=== PATIENT | female | born 2000 | race Hispanic/Latino ===

== ENCOUNTER 2019-11-02 19:06 | Inpatient (IN) ==
--- NOTE | 2019-11-02 19:37 | PROVIDER DOCUMENTATION ---
This chart was entered by Naomy Estrella Scribe, acting as scribe for Delbert Francois MD. HPI-Female /OB/Breast - General Chief Complaint: OB-Active Labor Stated Complaint: ABD PAIN/BLEEDING OB RELATED Time Seen by Provider: 11/02/19 19:10 Source: reports: healthcare interpreter Allergies/Adverse Reactions: Patient Allergies Allergy/AdvReac Type Severity Reaction Status Date / Time No Known Allergies Allergy Verified 11/24/18 02:13 Home Medications: Home Medication List Medication Instructions Recorded Confirmed Last Taken Type Pnv Cmb#95/Ferrous Fumarate/FA 1 tab PO DAILY 11/24/18 11/24/18 Unknown History [ Tablet] Ibuprofen [Motrin] 800 mg PO Q8H PRN PRN #30 tab 11/26/18 Unknown Rx - History of Present Illness-Female /OB Nature of Presenting Problem: Pt is a 19 yowf , 38 weeks , EDC 11/16/19, who presents to the ED in active labor. Pt is and does not speak occitan. History obtained thru language line. SROM at 7pm. Pt denies any vaginal bleeding. No care. Does patient report she is ?: Yes Location of complaint: reports: unknown Radiation: reports: none Quality of Pain: reports: pressure Severity in ED: reports: mild Onset/Duration: reports: 1-3 hours ago Timing: reports: still present Context/Activities at Onset: reports: none Vaginal Symptoms: reports: no symptoms Vaginal Bleeding Amount: None Urinary Symptoms: reports: no symptoms Related Symptoms: denies: vaginal bleeding Leakage of Fluid: none Sexual intercourse history: reports: Not Active Contraception: reports: none Modifying Factors: improves with: nothing Associated Symptoms: reports: denies symptoms Similar Symptoms Previously?: Yes Recently seen or treated by another doctor?: No - LMP/ History Menstrual Status: currently : 3 Para: 2 Prior Delivery: N/A Care: none Weeks/Months: 38 Age estimated by:: by dates CURRENT Problems: none PREVIOUS Problems: reports: none Contractions/Pelvic Pain: reports: weak Review of Systems - Adult - REVIEW OF SYSTEMS - ADULT Constitutional: reports: see HPI Eyes: reports: no symptoms reported Ears, Nose, Mouth & Throat: reports: no symptoms reported Cardiovascular: reports: no symptoms reported Respiratory: reports: no symptoms reported Gastrointestinal: reports: no symptoms reported Genitourinary: reports: see HPI, other (active labor) Musculoskeletal: reports: no symptoms reported Integumentary: reports: no symptoms reported Neurological: reports: no symptoms reported Psychiatric: reports: no symptoms reported Endocrine: reports: no symptoms reported Hematologic/Lymphatic: reports: no symptoms reported Allergic/Immunologic: reports: no symptoms reported All Other Systems: Reviewed and Negative Past History - Adult - PAST MEDICAL HISTORY-ADULT Review of Records: reports: Nursing Assessment Review, Medications Reviewed, Social history reviewed & non-contributory. Major Childhood Illnesses: reports: denies history Cardiovascular: reports: denies history Respiratory: reports: denies history Gastrointestinal: reports: denies history Obstetrical/Gynecological: reports: denies history Genitourinary: reports: denies history Musculoskeletal: reports: denies history Neurological: reports: denies history Endocrine/Immune: reports: denies history Other Conditions: reports: denies history - FAMILY HISTORY Family History: reviewed, not pertinent - SOCIAL HISTORY Smoking: non-smoker Substance Use: denies Physical Exam-General - PHYSICAL EXAM-ADULT Initial Vital Signs Reviewed: Yes - CONSTITUTIONAL General Appearance: alert, no apparent distress - EYES Eyes: PERRL/EOMI, pink conjunctivae - HEAD, EARS, NOSE, MOUTH & THROAT HENMT: normocephalic/atraumatic, moist mucous membranes, normal ENT inspection - NECK Neck: non-tender, full range of motion, supple, normal inspection - RESPIRATORY Respiratory: chest non-tender, lungs clear, normal breath sounds - CARDIOVASCULAR Cardiovascular: normal peripheral pulses, regular rate, rhythm - GASTROINTESTINAL (ABDOMEN) Abdominal Exam: normal bowel sounds, non tender, soft - GENITOURINARY Female Genitalia/Pelvic Exam: other (sterile pelvic exam: cervix is closed). negative: active bleeding - LYMPHATIC Lymphatic: no adenopathy - MUSCULOSKELETAL Back Exam: normal inspection, no CVA tenderness, no vertebral tenderness Extremity: normal range of motion, non-tender, normal inspection - SKIN Integumentary: normal color, normal turgor, warm/dry - NEUROLOGIC Neurologic: grossly normal - PSYCHIATRIC Psych/Mental Status: normal mood/affect, normal thought content, normal thought process, oriented x 3 Progress - PLAN OF CARE/RESULTS Progress/Plan/Lab Results: Vital Signs - 8 hr 11/02/19 19:08 Temperature 97.8 F Pulse Rate 83 Respiratory Rate 20 Blood Pressure 121/79 O2 Sat by Pulse Oximetry 97 Orders Category Date Time Status Heart Tones NOW Care 11/02/19 19:33 Ordered Saline Loc NOW Care 11/02/19 19:33 Ordered ABORH [BBK] Stat Lab 11/02/19 19:33 Ordered BMP [BASIC METABOLIC PANEL] [CHEM] Stat Lab 11/02/19 19:33 Ordered CBC WITH ELECTRONIC DIFF [HEME] Stat Lab 11/02/19 19:33 Ordered - CONSULTS/PCP/HOSPITALIST Notification #1 *Consult/PCP/Hospitalist*: Dr. Cortez OB Time Discussed: 19:25 Reason/Comments: accepts patient, transfer to L&D at [facility] Departure - Departure Date of Disposition Decision: 11/02/19 Time of Disposition Decision: 19:37 DIAGNOSIS: Active labor, 38 weeks gestation of Disposition: OTHER 70 Certified Medical Emergency: Emergent Condition: Stable Additional Instructions: transport by EMS to L&D at [facility] Referrals and Follow-Ups: None,PCP [Primary Care Provider] - - Critical Care Note This patient required my direct & personal management of CC.: No Attestation - Physician/ VARUN Attestation Patient care was provided by Advanced Practice Provider:: No The physician spent face to face time with patient:: Yes Advanced Practice Provider documentation review:: Supervising physician onsite and consulted in the evaluation and care of this patient. The physician did have a face to face encounter with the patient. This chart was documented by the indicated scribe, (Naomy Estrella Scribe) and accurately reflects the services I performed and decisions made by me, Delbert Francois MD, as attested by the provider's signature.
[2019-11-02 19:43] LABS: BASO# 0.03 X1000 (0.0-0.2); BASO% 0.3 % (0.0-0.8); EOS# 0.09 X1000 (0.0-0.7); EOS% 0.8 % (0.0-10.0); HEMATOCRIT 33.4 % (37.0-47.0); HEMOGLOBIN 10.6 g/dL (12.0-16.0); IMM GRAN# 0.09 X1000 (0.0-0.04); IMM GRAN% 0.8 % (0.0-0.5); LYMPH# 2.21 X1000 (1.2-3.4); LYMPH% 20.4 % (20.5-51.1); MCHC 31.7 g/dL (33-37); MCV 81.9 FL (81-99); MONO# 0.83 X1000 (0.11-0.59); MONO% 7.7 % (1.7-9.3); MPV 11.6 FL (7.4-10.4); NEUT# 7.57 X1000 (1.4-6.5); PLT 246 X1000 (130-400); RBC 4.08 XMIL (4.2-5.4); RDW 14.7 % (11.5-14.5); WBC 10.82 X1000 (4.8-10.8)
[2019-11-02 20:14] LABS: AGAP 14; BUN 11 mg/dL (8-22); CALCIUM 8.5 mg/dL (8.8-10.2); CHLORIDE 108 mmol/L (98-107); COSMO 278; CREATININE 0.6 mg/dL (0.5-0.9); ESTIMATED GFR > 60; GLUCOSE 115 mg/dL (70-104); POTASSIUM 3.6 mmol/L (3.5-5.1); SODIUM 139 mmol/L (136-145); TCO2 18 mmol/L (25-35)
[2019-11-02 20:23] LABS: URINE SOURCE VOIDED
[2019-11-02 20:37] LABS: BILIRUBIN URINE NEGATIVE (NEGATIVE); BLOOD URINE MODERATE (NEGATIVE); COLOR STRAW; GLUCOSE URINE NEGATIVE (NEGATIVE); KETONE URINE NEGATIVE (NEGATIVE); LEUKOCYTES URINE LARGE (NEGATIVE); NITRITE URINE NEGATIVE (NEGATIVE); PROTEIN URINE NEGATIVE (NEGATIVE); SP GRAVITY URINE 1.007; TURBIDITY URINE HAZY (CLEAR); UROBILINOGEN URINE NORMAL (NORMAL)
[2019-11-02 20:56] LABS: UR AMPHETAMINES QUAL NONE DETECTED (NONE DETECT); UR BARBITUATES QUAL NONE DETECTED (NONE DETECT); UR BENZODIAZEPIN QUAL NONE DETECTED (NONE DETECT); UR CANNABINOIDS QUAL NONE DETECTED (NONE DETECT); UR COCAINE QUAL NONE DETECTED (NONE DETECT); UR METHADONE QUAL NONE DETECTED (NONE DETECT); UR OPIATES QUAL NONE DETECTED (NONE DETECT); UR OXYCODONE QUAL NONE DETECTED (NONE DETECT); UR PCP QUAL NONE DETECTED (NONE DETECT)
[2019-11-02 20:59] LABS: BASO# 0.03 X1000 (0.0-0.2); BASO% 0.3 % (0.0-0.8); EOS# 0.08 X1000 (0.0-0.7); EOS% 0.8 % (0.0-10.0); HEMATOCRIT 32.6 % (37.0-47.0); HEMOGLOBIN 10.3 g/dL (12.0-16.0); IMM GRAN# 0.08 X1000 (0.0-0.04); IMM GRAN% 0.8 % (0.0-0.5); LYMPH% 22.3 % (20.5-51.1); MCH 26.2 PG (27-31); MCHC 31.6 g/dL (33-37); MONO# 0.59 X1000 (0.11-0.59); MONO% 6.3 % (1.7-9.3); MPV 11.2 FL (7.4-10.4); NEUT# 6.55 X1000 (1.4-6.5); NEUT% 69.5 % (42.2-75.2); PLT 242 X1000 (130-400); RBC 3.93 XMIL (4.2-5.4); RDW 14.7 % (11.5-14.5); WBC 9.43 X1000 (4.8-10.8)
[2019-11-02 21:32] LABS: RAPID HIV PRESUMPTIVE NEGATIVE; RPR NON-REACTIVE (NONREACTIVE); RUBELLA SCREEN NON IMMUNE (IMMUNE)
[2019-11-02] MEDS ORDERED: PEPCID IV PRN (22:34)
[2019-11-02] MEDS ORDERED: PEPCID PO PRN (22:34)
[2019-11-02] MEDS ORDERED: KEFZOL 1 GM/D5W 1 GM/50 ML IVPB IV PRN (22:34)
[2019-11-02] MEDS ORDERED: REGLAN PO ONE (22:34)
[2019-11-02] MEDS ORDERED: STADOL IV PRN (22:34)
[2019-11-02] MEDS ORDERED: ZOFRAN IV PRN (22:34)
[2019-11-02] MEDS ORDERED: AMPICILLIN 2 GM in NS 100 ML IV ONE (22:34)
[2019-11-02] MEDS ORDERED: PEPCID PO ONE (22:34)
[2019-11-02] MEDS ORDERED: TYLENOL PO PRN (22:34)
[2019-11-02] MEDS ORDERED: CELESTONE SOLUSPAN IM ONE (22:35)
[2019-11-02] MEDS ORDERED: SODIUM CHLORIDE 0.9% INJ SCH (22:45)
[2019-11-02] MEDS ORDERED: LR 1,000 ML IV SCH (22:45)
[2019-11-02] MEDS: PITOCIN 30 UNITS/NS 30 UNIT/500 ML IV.SOLN IV SCH (22:45)
[2019-11-02] MEDS ORDERED: PITOCIN 30 UNITS/NS 30 UNIT/500 ML IV.SOLN IV SCH (22:45)
[2019-11-02] MEDS ORDERED: MOTRIN PO ONE (22:58)
[2019-11-02] MEDS ORDERED: PERCOCET-5 PO ONE (22:58)
[2019-11-02] MEDS ORDERED: HYDROXYZINE IM PRN (23:22)
[2019-11-02] MEDS ORDERED: BENADRYL IV PRN (23:22)
[2019-11-02] MEDS ORDERED: PITOCIN IM PRN (23:22)
[2019-11-02] MEDS ORDERED: ATARAX PO PRN (23:22)
[2019-11-02] MEDS ORDERED: MINERAL OIL PO PRN (23:22)
[2019-11-02] MEDS ORDERED: PERI MEDS (DERMOPLAST/NUPERCAINAL/TUCKS) MISC PRN (23:22)
[2019-11-02] MEDS ORDERED: BENADRYL PO PRN (23:22)
[2019-11-02] MEDS ORDERED: BOOSTRIX VACCINE IM ONE (23:22)
[2019-11-02] MEDS ORDERED: CYTOTEC PO PRN (23:22)
[2019-11-02] MEDS ORDERED: M-M-R II VACCINE SUBQ ONE (23:22)
[2019-11-02] MEDS ORDERED: XYLOCAINE-MPF 1% INJ PRN (23:22)
[2019-11-02] MEDS ORDERED: PERCOCET-10 PO PRN (23:22)
[2019-11-02] MEDS ORDERED: AMBIEN PO PRN (23:22)
[2019-11-02] MEDS ORDERED: PITOCIN 20 UNITS/NS 20 UNITS/1,000 ML IV.SOLN IV SCH (23:30)
[2019-11-03] MEDS ORDERED: AMPICILLIN 1 GM in NS 50 ML IV SCH (02:35)
[2019-11-03] MEDS: PITOCIN 30 UNITS/NS 30 UNIT/500 ML IV.SOLN IV SCH (02:38)
--- NOTE | 2019-11-03 04:38 | HISTORY AND PHYSICAL ---
ADMITTING PHYSICIAN: Judith Cortez DO CHIEF COMPLAINT: Leaking fluid and abdominal pain. HISTORY OF PRESENT ILLNESS: The patient is a 19-year-old G3, P1, 1-0-2 at 38 weeks and 0 days by patient stated due date of 11/16/2019, who presents via EMS from [facility] for the complaint of leaking fluid and frequent contractions. She states that leaking fluid started at approximately 7:00 in the evening, and is associated with frequent contractions every 2 to 3 minutes. She denies any vaginal bleeding. She endorses movement. She has had no care this , however, she did say she had an ultrasound performed in [place] in July of 2019 that gave her a due date of 11/16/2019. A T3 ultrasound performed today gives an approximate gestational age of 33 weeks and 0 days. Her GBS status is unknown. This is a short interval , she did deliver in November of 2018 at this hospital. OBSTETRIC HISTORY: G1 spontaneous vaginal delivery at term, male. She denies any complications (June of 2017). G2 spontaneous vaginal delivery at approximately 35 weeks, female, 6 pounds 6 ounces (11/24/2018) complicated by no care. G3 equals current complicated by no care in short interval . 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 She is unsure of her last menstrual period. PAST MEDICAL HISTORY: Denies. MEDICATIONS: vitamin p.o. daily. ALLERGIES: No known drug allergies. SURGICAL HISTORY: Denies. SOCIAL HISTORY: Denies tobacco, alcohol, or drug use. FAMILY HISTORY: Denies. VITAL SIGNS: Blood pressure 120/73, heart rate 77, O2 saturation 99% on room air. Temperature 98 degrees, respiratory rate 20, heart tracings 140/moderate/positive excels/no decelerations. Mahomet q.1 to 2 minutes. LABORATORY DATA: White blood cell count 10.8, hemoglobin 10.6, hematocrit 33.4, and platelets 246,000. Sodium 139, potassium 3.6, chloride 108, CO2 18, BUN 11, creatinine 0.6, and blood sugar 115. Rubella nonimmune. O positive blood type with negative antibody screen. RPR negative. HIV negative. ROM Plus negative. Urinalysis shows moderate blood with large leukocyte esterase. Urine drug screen negative. PHYSICAL EXAMINATION: GENERAL: Alert in no acute distress. CARDIOVASCULAR: Regular rate and rhythm. RESPIRATORY: Lungs clear to auscultation bilaterally. No respiratory distress. ABDOMEN: Soft, gravid. Nontender. PELVIC: Sterile speculum exam, no pooling noted on exam. Positive cervical mucus present. The cervix appears nulliparous. Sterile vaginal exam 350/-2. Negative ferning. Patient rechecked after ultrasound performed, which revealed cervix 790/-1. EXTREMITIES: No clubbing, cyanosis, or edema. DIAGNOSTIC: Ultrasound estimated gestational age by today's ultrasound 33 weeks and 0 days with an LYNN of 12/21/2019, single live intrauterine gestation in cephalic position with anterior placenta, and no evidence of previa. ELIZABETH of 3.34 cm ASSESSMENT AND PLAN: A 19-year-old G3, P1, 1-0-2 at 33 weeks and 0 days by a T3 ultrasound performed today in labor with no care and short interval . 1. We will admit to Labor and Delivery. Maternal status reassuring. 2. ELIZABETH of 3.34 suspicious for rupture of membranes, however, other testing negative. We will treat with ampicillin for GBS unknown status. 3. Uncertain dates due to no care during this . Patient gives a stated gestational age of 38 weeks, however, dating performed today gives an approximate gestational age of 33 weeks. Due to advanced labor, we will give 1 dose of betamethasone for lung maturity, and treat with ampicillin for GBS unknown. Senior Executive Assistant notified. 4. labs ordered, gonorrhea, and chlamydia still pending. 5. Continuous external monitoring and toco. 6. Anticipate vaginal delivery.
--- NOTE | 2019-11-03 05:02 | OPERATIVE NOTE ---
PROCEDURE DATE: 11/02/2019 PROCEDURE: A 19-year-old G3, P1, 1-0-2 at 33 weeks and 0 days by a T3 ultrasound performed today presents to Labor and Delivery in labor. She underwent a spontaneous vaginal delivery of a vigorous viable female . The delivered in an HUMBLE presentation, and head, shoulders and body delivered without difficulty with maternal pushing effort. weighed 5 pounds 7 ounces with Apgars of 9 and 10 at 1 and 5 minutes respectively. Placenta delivered spontaneously intact with a three-vessel cord. A first-degree midline laceration was noted, and was repaired with 2-0 Vicryl in a standard fashion. 4 mL of 1% lidocaine was used for local anesthesia. Estimated blood loss 250 mL. Pediatric nurse in attendance. Mother stable to recovery room. [facility]
[2019-11-03 05:23] LABS: HEMATOCRIT 29.9 % (37.0-47.0); HEMOGLOBIN 9.6 g/dL (12.0-16.0); MCH 26.7 PG (27-31); MCHC 32.1 g/dL (33-37); MCV 83.3 FL (81-99); MPV 11.6 FL (7.4-10.4); RBC 3.59 XMIL (4.2-5.4); RDW 14.9 % (11.5-14.5); WBC 14.53 X1000 (4.8-10.8)
--- NOTE | 2019-11-03 06:42 | OB/GYN PROGRESS NOTE ---
- Subjective Pt seen and examined. Currently w/o complaints. Ambulating and urinating w/o difficulty. Tolerating regular diet. Denies N/V/F/C. +bottle feeding. Reports decreased lochia. OB Physical Exam Vital Signs - 8 hr 11/02/19 23:00 11/02/19 23:15 11/02/19 23:30 Temperature 98.2 F Pulse Rate 86 84 77 Respiratory Rate 18 18 18 Blood Pressure 118/73 112/64 121/62 O2 Sat by Pulse Oximetry 100 99 98 11/02/19 23:45 11/03/19 00:00 11/03/19 02:15 Temperature 97.6 F Pulse Rate 75 71 83 Respiratory Rate 18 18 16 Blood Pressure 127/58 109/58 102/63 O2 Sat by Pulse Oximetry 98 98 97 11/03/19 03:40 Temperature 97 F L Pulse Rate 73 Respiratory Rate 16 Blood Pressure 106/59 O2 Sat by Pulse Oximetry 96 - CONSTITUTIONAL General Appearance: appears well, alert, no apparent distress - RESPIRATORY Respiratory: lungs clear, normal breath sounds - CARDIOVASCULAR Cardiovascular: regular rate, rhythm - GASTROINTESTINAL (ABDOMEN) Abdominal Exam: non tender, soft (FF at umbilicus) - MUSCULOSKELETAL Extremity: non-tender, no calf tenderness - PSYCHIATRIC Psych/Mental Status: normal mood/affect, oriented x 3 Active Medications Generic Name Dose Route Start Last Admin Trade Name Freq PRN Reason Stop Dose Admin Acetaminophen 650 mg 11/02/19 22:34 Tylenol PO Q4-6H PRN PRN Headache Benzocaine 1 each 11/02/19 23:22 11/02/19 23:39 Estephania Meds (Dermoplast/Nupercainal/Tucks) MISC 1 packet 3-4XDAY PRN PRN Administration episiotomy/hemorrhoids Diphenhydramine HCl 12.5 mg 11/02/19 23:22 Benadryl IV Q4H PRN PRN Itching Diphenhydramine HCl 25 mg 11/02/19 23:22 Benadryl PO Q4H PRN PRN Itching Famotidine 40 mg 11/02/19 22:34 Pepcid PO Q12H PRN PRN GI upset or indigestion Famotidine 20 mg 11/02/19 22:34 Pepcid IV Q12H PRN PRN GI upset or indigestion Hydroxyzine HCl 50 mg 11/02/19 23:22 Hydroxyzine IM Q3-4H PRN PRN Nausea Hydroxyzine HCl 50 mg 11/02/19 23:22 Atarax PO Q3-4H PRN PRN Nausea Oxytocin/Sodium Chloride 20 units in 1,000 mls @ 0 mls/hr 11/02/19 23:30 Pitocin 20 Units/Ns IV .Q0M BRAYDEN As Directed Ibuprofen 800 mg 11/02/19 23:22 Motrin PO Q8H PRN PRN cramping Misoprostol 800 microgm 11/02/19 23:22 Cytotec PO PRN PRN Severe bleeding Ondansetron HCl 4 mg 11/02/19 22:34 Zofran IV PRN PRN Nausea Oxycodone/Acetaminophen 1 each 11/02/19 23:22 Percocet-10 PO Q3-4H PRN PRN Pain (7-10 on Pain Scale) Oxycodone/Acetaminophen 1 each 11/02/19 23:22 Percocet-5 PO Q3-4H PRN PRN Pain (1-6 on Pain Scale) Oxytocin 20 unit 11/02/19 23:22 Pitocin IM PRN PRN Severe bleeding Senna/Docusate Sodium 1 each 11/03/19 21:00 Pericolace PO QHS [facility] Sodium Chloride 5 - 10 ml 11/02/19 22:45 Sodium Chloride 0.9% INJ DIRECTED [facility] Zolpidem Tartrate 10 mg 11/02/19 23:22 Ambien PO HS PRN PRN Sleep Laboratory Results - last 24 hr 11/02/19 11/02/19 11/02/19 19:25 19:25 20:00 WBC 10.82 H RBC 4.08 L Hgb 10.6 L Hct 33.4 L MCV 81.9 MCH 26.0 L MCHC 31.7 L RDW Std Deviation 14.7 H Plt Count 246 MPV 11.6 H Immature Gran % (Auto) 0.8 H Neut % (Auto) 70.0 Lymph % (Auto) 20.4 L Brooke % (Auto) 7.7 Eos % (Auto) 0.8 Baso % (Auto) 0.3 Immature Gran # (Auto) 0.09 H Neut # (Auto) 7.57 H Lymph # (Auto) 2.21 Brooke # (Auto) 0.83 H Eos # (Auto) 0.09 Baso # (Auto) 0.03 Sodium 139 Potassium 3.6 Chloride 108 H Carbon Dioxide 18 L Anion Gap 14 BUN 11 Creatinine 0.6 Estimated GFR/1.73 m2 > 60 BUN/Creatinine Ratio 18 Glucose 115 H Calculated Osmolality 278 Calcium 8.5 L Urine Source Urine Color Urine Turbidity Urine pH Ur Specific Stephenson Urine Protein Ur Glucose (Stick) Ur Ketones (Stick) Urine Blood Urine Nitrite Urine Bilirubin Urobilinogen Dipstick Urine Leukocytes Membranes Rupture Urine Opiates Screen NONE DETECTED Ur Oxycodone Screen NONE DETECTED Ur Methadone, Qual NONE DETECTED Ur Barbiturates Screen NONE DETECTED Ur Phencyclidine Scrn NONE DETECTED Ur Amphetamines Screen NONE DETECTED U Benzodiazepines Scrn NONE DETECTED Urine Cocaine Screen NONE DETECTED U Cannabinoids Screen NONE DETECTED RPR HIV 1&2 Antibody Rapid Rubella Immunity Screen Blood Type Antibody Screen 11/02/19 11/02/19 11/02/19 20:00 20:25 20:48 WBC RBC Hgb Hct MCV MCH MCHC RDW Std Deviation Plt Count MPV Immature Gran % (Auto) Neut % (Auto) Lymph % (Auto) Brooke % (Auto) Eos % (Auto) Baso % (Auto) Immature Gran # (Auto) Neut # (Auto) Lymph # (Auto) Brooke # (Auto) Eos # (Auto) Baso # (Auto) Sodium Potassium Chloride Carbon Dioxide Anion Gap BUN Creatinine Estimated GFR/1.73 m2 BUN/Creatinine Ratio Glucose 101 Calculated Osmolality Calcium Urine Source VOIDED Urine Color STRAW Urine Turbidity HAZY Urine pH 7.0 Ur Specific Stephenson 1.007 Urine Protein NEGATIVE Ur Glucose (Stick) NEGATIVE Ur Ketones (Stick) NEGATIVE Urine Blood MODERATE A Urine Nitrite NEGATIVE Urine Bilirubin NEGATIVE Urobilinogen Dipstick NORMAL Urine Leukocytes LARGE A Membranes Rupture NEGATIVE Urine Opiates Screen Ur Oxycodone Screen Ur Methadone, Qual Ur Barbiturates Screen Ur Phencyclidine Scrn Ur Amphetamines Screen U Benzodiazepines Scrn Urine Cocaine Screen U Cannabinoids Screen RPR HIV 1&2 Antibody Rapid Rubella Immunity Screen Blood Type Antibody Screen 11/02/19 11/02/19 11/02/19 20:48 20:48 20:48 WBC 9.43 RBC 3.93 L Hgb 10.3 L Hct 32.6 L MCV 83.0 MCH 26.2 L MCHC 31.6 L RDW Std Deviation 14.7 H Plt Count 242 MPV 11.2 H Immature Gran % (Auto) 0.8 H Neut % (Auto) 69.5 Lymph % (Auto) 22.3 Brooke % (Auto) 6.3 Eos % (Auto) 0.8 Baso % (Auto) 0.3 Immature Gran # (Auto) 0.08 H Neut # (Auto) 6.55 H Lymph # (Auto) 2.10 Brooke # (Auto) 0.59 Eos # (Auto) 0.08 Baso # (Auto) 0.03 Sodium Potassium Chloride Carbon Dioxide Anion Gap BUN Creatinine Estimated GFR/1.73 m2 BUN/Creatinine Ratio Glucose Calculated Osmolality Calcium Urine Source Urine Color Urine Turbidity Urine pH Ur Specific Stephenson Urine Protein Ur Glucose (Stick) Ur Ketones (Stick) Urine Blood Urine Nitrite Urine Bilirubin Urobilinogen Dipstick Urine Leukocytes Membranes Rupture Urine Opiates Screen Ur Oxycodone Screen Ur Methadone, Qual Ur Barbiturates Screen Ur Phencyclidine Scrn Ur Amphetamines Screen U Benzodiazepines Scrn Urine Cocaine Screen U Cannabinoids Screen RPR NON-REACTIVE HIV 1&2 Antibody Rapid PRESUMPTIVE NEGATIVE Rubella Immunity Screen NON IMMUNE H Blood Type O POSITIVE Antibody Screen NEGATIVE 11/03/19 05:09 WBC 14.53 H RBC 3.59 L Hgb 9.6 L Hct 29.9 L MCV 83.3 MCH 26.7 L MCHC 32.1 L RDW Std Deviation 14.9 H Plt Count 208 MPV 11.6 H Immature Gran % (Auto) Neut % (Auto) Lymph % (Auto) Brooke % (Auto) Eos % (Auto) Baso % (Auto) Immature Gran # (Auto) Neut # (Auto) Lymph # (Auto) Brooke # (Auto) Eos # (Auto) Baso # (Auto) Sodium Potassium Chloride Carbon Dioxide Anion Gap BUN Creatinine Estimated GFR/1.73 m2 BUN/Creatinine Ratio Glucose Calculated Osmolality Calcium Urine Source Urine Color Urine Turbidity Urine pH Ur Specific Stephenson Urine Protein Ur Glucose (Stick) Ur Ketones (Stick) Urine Blood Urine Nitrite Urine Bilirubin Urobilinogen Dipstick Urine Leukocytes Membranes Rupture Urine Opiates Screen Ur Oxycodone Screen Ur Methadone, Qual Ur Barbiturates Screen Ur Phencyclidine Scrn Ur Amphetamines Screen U Benzodiazepines Scrn Urine Cocaine Screen U Cannabinoids Screen RPR HIV 1&2 Antibody Rapid Rubella Immunity Screen Blood Type Antibody Screen OB Assessment & Plan (1) (spontaneous vaginal delivery) Status: Acute Plan: 19yo PPD#1 s/p -HD stable -start ferrous sulfate -OOB to ambulation -reg diet -continue routine PP care -d/c home tomorrow
--- NOTE | 2019-11-03 08:10 | Diag Imaging Result Doc PS360 ---
US OBS COMPLETE > 14 WKS - 11/02/2019 INDICATION: no care TECHNIQUE: COMPARISON: None FINDINGS: There is a single intrauterine . Positioning is cephalic. cardiac activity is 150 bpm. The cervix is long and closed. The cervix measures 4 cm. There is oligohydramnios. Amniotic fluid index is 3.34. The placenta is anterior and appears normal. Normal anatomy including head and intracranial contents, spine, extremities, four-chamber heart, diaphragms, stomach, kidneys, urinary bladder, three-vessel cord and cord insertion. The fetus is a female. Estimate of gestational age is 33 weeks +/- 17 days. Estimated weight is 2212 g. IMPRESSION: Single living intrauterine in cephalic presentation. There is oligohydramnios. This may indicate premature rupture of membranes. Electronically signed by Junior Gresham 11/03/2019 8:08 AM
[2019-11-03] MEDS: FERROUS SULFATE PO SCH (10:05)
[2019-11-03] MEDS: PERCOCET-5 PO PRN ×2 (14:43→22:08)
[2019-11-03] MEDS: MOTRIN PO PRN ×2 (14:43→22:08)
[2019-11-03 17:02] LABS: HIV ANTIBODY SCREEN SEE COMMENTS
[2019-11-03 17:03] LABS: HEPATITIS B SURFACE ANTIGEN SEE COMMENTS
[2019-11-03] MEDS: PERICOLACE PO SCH (22:08)
[2019-11-04] MEDS: FERROUS SULFATE PO SCH (09:06)
[2019-11-04] MEDS: MOTRIN PO PRN ×2 (09:07→16:34)
[2019-11-04] MEDS: PERICOLACE PO SCH (20:02)
[2019-11-04] MEDS: PERCOCET-5 PO PRN (22:43)
--- NOTE | 2019-11-05 08:20 | OB/GYN PROGRESS NOTE ---
- Subjective No complaints, up and about, ready to go home OB Physical Exam - CONSTITUTIONAL General Appearance: appears well, alert, no apparent distress - EYES Eyes: PERRL/EOMI - HEAD, EARS, NOSE, MOUTH & THROAT HENMT: normocephalic/atraumatic, moist mucous membranes - RESPIRATORY Respiratory: no respiratory distress - CARDIOVASCULAR Cardiovascular: regular rate, rhythm - CHEST (BREASTS) Chest/Breast: deferred - GASTROINTESTINAL (ABDOMEN) Abdominal Exam: normal bowel sounds, non tender, soft - GENITOURINARY Female Genitalia/Pelvic Exam: deferred - MUSCULOSKELETAL Extremity: normal range of motion - SKIN Integumentary: normal color, normal turgor - NEUROLOGIC Neurologic: grossly normal - PSYCHIATRIC Psych/Mental Status: normal mood/affect, oriented x 3 Active Medications Generic Name Dose Route Start Last Admin Trade Name Freq PRN Reason Stop Dose Admin Acetaminophen 650 mg 11/02/19 22:34 Tylenol PO Q4-6H PRN PRN Headache Benzocaine 1 each 11/02/19 23:22 11/02/19 23:39 Estephania Meds (Dermoplast/Nupercainal/Tucks) MISC 1 packet 3-4XDAY PRN PRN Administration episiotomy/hemorrhoids Diphenhydramine HCl 12.5 mg 11/02/19 23:22 Benadryl IV Q4H PRN PRN Itching Diphenhydramine HCl 25 mg 11/02/19 23:22 Benadryl PO Q4H PRN PRN Itching Famotidine 40 mg 11/02/19 22:34 Pepcid PO Q12H PRN PRN GI upset or indigestion Famotidine 20 mg 11/02/19 22:34 Pepcid IV Q12H PRN PRN GI upset or indigestion Ferrous Sulfate 325 mg 11/03/19 09:00 11/04/19 09:06 Ferrous Sulfate PO 325 mg DAILY BRAYDEN Administration Hydroxyzine HCl 50 mg 11/02/19 23:22 Hydroxyzine IM Q3-4H PRN PRN Nausea Hydroxyzine HCl 50 mg 11/02/19 23:22 Atarax PO Q3-4H PRN PRN Nausea Oxytocin/Sodium Chloride 20 units in 1,000 mls @ 0 mls/hr 11/02/19 23:30 Pitocin 20 Units/Ns IV .Q0M BRAYDEN As Directed Ibuprofen 800 mg 11/02/19 23:22 11/04/19 16:34 Motrin PO 800 mg Q8H PRN PRN Administration cramping Misoprostol 800 microgm 11/02/19 23:22 Cytotec PO PRN PRN Severe bleeding Ondansetron HCl 4 mg 11/02/19 22:34 Zofran IV PRN PRN Nausea Oxycodone/Acetaminophen 1 each 11/02/19 23:22 Percocet-10 PO Q3-4H PRN PRN Pain (7-10 on Pain Scale) Oxycodone/Acetaminophen 1 each 11/02/19 23:22 11/04/19 22:43 Percocet-5 PO 1 each Q3-4H PRN PRN Administration Pain (1-6 on Pain Scale) Oxytocin 20 unit 11/02/19 23:22 Pitocin IM PRN PRN Severe bleeding Senna/Docusate Sodium 1 each 11/03/19 21:00 11/04/19 20:02 Pericolace PO 1 each QHS BRAYDEN Administration Sodium Chloride 5 - 10 ml 11/02/19 22:45 Sodium Chloride 0.9% INJ DIRECTED BRAYDEN Zolpidem Tartrate 10 mg 11/02/19 23:22 Ambien PO HS PRN PRN Sleep Laboratory Results - last 24 hr 11/02/19 05:35 Ur Chlamydia/GC DNA SEE COMMENTS
[2019-11-05 08:29] VITALS: BP 109/67
[2019-11-05] MEDS: MOTRIN PO PRN (08:30)
[2019-11-05] MEDS: FERROUS SULFATE PO SCH (08:30)
--- NOTE | 2019-11-05 08:46 | DISCHARGE SUMMARY ---
ADMISSION DATE: 11/02/2019 DISCHARGE DATE: 11/05/2019 This patient is a 19-year-old 3 para 2, who was admitted on 11/02 as a transfer from an outside facility in labor. She was noted to be approximately 33 weeks with no care. Her past medical history was benign. She was on vitamins. She has no known drug allergies. No previous surgeries, and her labs were within normal limits, note the mild anemia. The patient delivered of a healthy child, spontaneous vaginal delivery, and had an unremarkable course. She was discharged home on 11/05 with Motrin, and followup with her physician in 4-6 weeks. The patient verbalized understanding of all discharge instructions, and all questions were answered. [facility]
[2019-11-05] MEDS ORDERED: FLU VACCINE IM ONE (12:45)
== END 2019-11-05 13:40 | disposition home or self-care (01) | DRG 807 ==
LOC: P.ED 19:06 → LD 20:05 → EDSTATUS 20:07 → LD 22:33
PROVIDERS: ADMIT Student in an Organized Health Care Education/Training Program; ATTEND Student in an Organized Health Care Education/Training Program